=== PATIENT | female | born 1930 ===

== ENCOUNTER 2020-09-06 12:27 | Emergency (ER) | payer BC, MEDICARE ==
[~2020-09-06] VITALS: Ht 154.9 cm; Wt 40.3 kg
--- NOTE | 2020-09-06 13:05 | NUR ---
PT TO ROOM FROM TRIAGE, CHANGED INTO GOWN, MONITORS IN PLACE. PT C/O WEAKNESS. GLF 2 MONTHS AGO, PT STILL COMPLAINS OF COMER, WITH "METALLIC CLICKING SOUNDS" IN HER HEAD AND A SHARP LIGHT VISUAL. SON AT BS. CALL LIGHT WITHIN REACH, BED IN LOWEST POSITION, BED RAILS UP X2
--- NOTE | 2020-09-06 14:05 | NUR ---
MARY GRACE (SON NUMBER): [phone]
--- NOTE | 2020-09-06 14:26 | NUR ---
xray at bs
[2020-09-06] MEDS ORDERED: SODIUM CHLORIDE FLUSH 10ML SYR IVF ONE (14:30)
--- NOTE | 2020-09-06 14:45 | NUR ---
PER ERP, PT OKAY TO TAKE OWN HYDROCODONE
[2020-09-06 14:53] LABS: BASOPHILS % (AUTO) 1 % (0-1); EOSINOPHILS % (AUTO) 0 % (1-7); LYMPHOCYTES % (AUTO) 18 % (22-44); MEAN CORPUSCULAR HGB CONC 34.9 g/dL (32.4-35.8); MEAN PLATELET VOLUME 6.2 fL (7.4-10.4); MONOCYTES % (AUTO) 8 % (2-9); NEUTROPHILS % (AUTO) 73 % (42-75); PLATELET COUNT 285 x10^3/uL (130-400); RED BLOOD COUNT 3.79 x10^6/uL (3.82-5.3); RED CELL DISTRIBUTION WIDTH 13.9 % (9.6-15.2)
[2020-09-06 14:58] LABS: MICROSCOPIC INDICATED
[2020-09-06 15:02] LABS: ALBUMIN 3.3 g/dL (3.4-5.0); ANION GAP 5 mmol/L (5-15); CALCIUM 8.9 mg/dL (8.5-10.1); CHLORIDE 106 mmol/L (98-107)
[2020-09-06 15:14] LABS: ALANINE AMINOTRANSFERASE 28 U/L (12-78); ALKALINE PHOSPHATASE 75 U/L (45-117); BILIRUBIN,TOTAL 0.4 mg/dL (0.2-1.0); CREATININE 0.54 mg/dL (0.55-1.02); TOTAL PROTEIN 7.1 g/dL (6.4-8.2); TROPONIN I < 0.015 ng/mL (0.000-0.045)
--- NOTE | 2020-09-06 15:36 | NUR ---
Mikki noble in [facility] - 09/06/20 at 1540 by MARIA [id number] PT TO [address]
--- NOTE | 2020-09-06 15:40 | NUR ---
PT AMBULATORY WITH ASSISTANCE TO [facility]
--- NOTE | 2020-09-06 16:11 | NUR ---
PT TO CT
--- NOTE | 2020-09-06 16:40 | NUR ---
PT BACK FROM CT, CONNECTED TO MONITORS. CALL LIGHT WITHIN REACH
[2020-09-06 16:59] VITALS: BP 174/76
--- NOTE | 2020-09-06 17:02 | NUR ---
PT CHART UP FOR RECHECK
--- NOTE | 2020-09-06 17:48 | NUR ---
erp at bs
--- NOTE | 2020-09-06 18:34 | NUR ---
Patient/Caregiver given discharge instructions and they have confirmed that they understand the instructions. Patient ambulatory with steady gait.
== END 2020-09-06 18:35 | disposition home or self-care (01) ==
LOC: ED 15:36
DX: R07.89 Other chest pain (principal); R53.1 Weakness; I10 Essential (primary) hypertension; M79.18 Myalgia, other site; R06.02 Shortness of breath; R94.31 Abnormal electrocardiogram [ECG] [EKG]; R51.9 Headache, unspecified; M54.2 Cervicalgia
CPT/HCPCS: 36415; 70450; 71045; 72125; 80053; 81001; 83735; 84443; 84484; 85025; 87077; 87086; 87186; 93005; 99285

== ENCOUNTER 2020-09-09 05:12 | Emergency (ER) | payer BC ==
[~2020-09-09] VITALS: Ht 157.5 cm; Wt 40.0 kg
[2020-09-09 05:14] VITALS: BP 185/70
--- NOTE | 2020-09-09 05:46 | NUR ---
Patient given discharge instructions and they have confirmed that they understand the instructions. Patient ambulatory with steady gait. NAD, all questions answered appropriately, denies additional needs at this time. No personal belongings left in room after discharge.
== END 2020-09-09 05:48 | disposition home or self-care (01) ==
LOC: ED 05:42
DX: N30.00 Acute cystitis without hematuria (principal); R11.0 Nausea; I10 Essential (primary) hypertension
CPT/HCPCS: 99283